=== PATIENT | male | born 1990 | race African-American/Black ===

== ENCOUNTER 2022-03-12 19:39 | Emergency (ER) | payer SELFPAY ==
--- NOTE | 2022-03-12 20:23 | ER ---
Nurse's Notes [facility] Name: Alonzo Holt III Age: 32 yrs Sex: Male : 1990 Arrival Date: 03/12/2022 Time: 19:41 Bed 10 Private MD: Diagnosis: Nausea Presentation: 03/12 19:53 Chief complaint: Patient states: COVID + today at [facility]. C/O N/V/D, fever, cough ld1 and SOB X 3 days. SpO2 98% upon arrival to ER. Coronavirus screen: cough unrelated to allergies, difficulty breathing, fatigue, nausea, vomiting. Client presents with at least one sign or symptom that may indicate coronavirus-19. Standard/surgical mask placed on the client. Ebola Screen: No symptoms or risks identified at this time. Initial Sepsis Screen: Does the patient meet any 2 criteria? No. Patient's initial sepsis screen is negative. Does the patient have a suspected source of infection? No. Patient's initial sepsis screen is negative. Risk Assessment: Do you want to hurt yourself or someone else? Patient reports no desire to harm self or others. Onset of symptoms was March 12, 2022 at 19:55. 19:53 Method Of Arrival: Ambulatory ld1 19:53 Acuity: STEFANI 4 ld1 Triage Assessment: 19:55 General: Appears in no apparent distress. uncomfortable, Behavior is calm, cooperative. ld1 Pain: Denies pain. EENT: No signs and/or symptoms were reported regarding the EENT system. Neuro: Level of Consciousness is awake, alert, obeys commands, Oriented to person, place, time, situation. Respiratory: Reports shortness of breath at rest Airway is patent Respiratory effort is even, unlabored, Onset: The symptoms/episode began/occurred gradually, the patient has mild shortness of breath. Historical: - Allergies: 19:55 No Known Allergies; ld1 - Home Meds: 19:55 None [Active]; ld1 - PMHx: 19:55 None; ld1 - PSHx: 19:55 None; ld1 - Immunization history:: Adult Immunizations not up to date, Client reports having NOT received the Covid vaccine. - Social history:: Smoking status: Patient reports the use of cigarette tobacco products, smokes one-half pack cigarettes per day, Patient uses alcohol, occasionally. Screenin:42 Abuse screen: Denies threats or abuse. Denies injuries from another. Nutritional lp1 screening: No deficits noted. Tuberculosis screening: No symptoms or risk factors identified. Fall Risk None identified. Assessment: 20:41 Reassessment: Patient reports concern that medication will not improve nausea; lp1 Discussed monitoring patient and attempting PO challenge to determine if nausea relieved. 21:11 Reassessment: Patient reports nausea improved, drinking water at this time. lp1 Vital Signs: 19:53 BP 102 / 64; Pulse 77; Resp 18; Temp 98.1(TE); Pulse Ox 98% on R/A; Weight 71.21 kg; ld1 Height 5 ft. 11 in. (180.34 cm); Pain 0/10; 19:53 Body Mass Index 21.90 (71.21 kg, 180.34 cm) ld1 ED Course: 19:41 Patient arrived in ED. jj6 19:55 Triage completed. ld1 19:55 Arm band placed on right wrist. ld1 20:05 Chente Ashley PA is PHCP. jr8 20:05 Dudley Stanford MD is Attending Physician. jr8 20:34 Divya Gresham, RN is Primary Nurse. lp1 21:00 Patient has correct armband on for positive identification. lp1 21:30 No provider procedures requiring assistance completed. Patient did not have IV access lp1 during this emergency room visit. Administered Medications: 20:41 Drug: Ondansetron 4 mg Route: PO; lp1 21:11 Follow up: Response: Marked relief of symptoms; Nausea is decreased lp1 Outcome: 20:23 Discharge ordered by . jr8 21:45 Discharged to home ambulatory. lp1 21:45 Condition: good 21:45 Discharge instructions given to patient, Instructed on discharge instructions, follow up and referral plans. medication usage, Demonstrated understanding of instructions, follow-up care, medications, Prescriptions given X 1. 21:46 Patient left the ED. lp1 Signatures: Divya Gresham, RN RN lp1 Chente Ashley PA PA jr8 Anjali Estevez RN RN ld1 Brinda Ghotra jj6
--- NOTE | 2022-03-12 20:23 | EDPHYS ---
Physician Documentation [facility] Name: Alonzo Holt III Age: 32 yrs Sex: Male : 1990 Arrival Date: 03/12/2022 Time: 19:41 Bed 10 Private MD: ED Physician Dudley Stanford HPI: 03/12 20:26 This 32 yrs old Black Male presents to ER via Ambulatory with complaints of Nausea, jr8 General Weakness. 20:26 The patient presents to the emergency department with nausea. Onset: The jr8 symptoms/episode began/occurred gradually, 2 day(s) ago. Possible causes: sick contacts, by family. The symptoms are aggravated by food , The symptoms are alleviated by nothing. Associated signs and symptoms: Pertinent positives: headache, chills. Severity of symptoms: At their worst the symptoms were moderate in the emergency department the symptoms are unchanged. The patient has not experienced similar symptoms in the past. The patient has been recently seen by a physician:. Tested at the [place] for covid today. Stated that his family all tested positive and now has symptoms for past two days. Historical: - Allergies: 19:55 No Known Allergies; ld1 - Home Meds: 19:55 None [Active]; ld1 - PMHx: 19:55 None; ld1 - PSHx: 19:55 None; ld1 - Immunization history:: Adult Immunizations not up to date, Client reports having NOT received the Covid vaccine. - Social history:: Smoking status: Patient reports the use of cigarette tobacco products, smokes one-half pack cigarettes per day, Patient uses alcohol, occasionally. ROS: 20:26 Eyes: Negative for injury, pain, redness, and discharge, ENT: Negative for injury, jr8 pain, and discharge, Neck: Negative for injury, pain, and swelling, Cardiovascular: Negative for chest pain, palpitations, and edema, Respiratory: Negative for shortness of breath, cough, wheezing, and pleuritic chest pain, Back: Negative for injury and pain, MS/Extremity: Negative for injury and deformity, Skin: Negative for injury, rash, and discoloration. 20:26 Constitutional: Positive for chills. 20:26 Abdomen/GI: Positive for nausea, Negative for abdominal pain, vomiting, diarrhea. 20:26 Neuro: Positive for headache. Exam: 20:26 Constitutional: This is a well developed, well nourished patient who is awake, alert, jr8 and in no acute distress. ENT: Nares patent. No nasal discharge, no septal abnormalities noted. Tympanic membranes are normal and external auditory canals are clear. Oropharynx with no redness, swelling, or masses, exudates, or evidence of obstruction, uvula midline. Mucous membranes moist. Neck: Trachea midline, no thyromegaly or masses palpated, and no cervical lymphadenopathy. Supple, full range of motion without nuchal rigidity, or vertebral point tenderness. No Meningismus. Cardiovascular: Regular rate and rhythm with a normal S1 and S2. No gallops, murmurs, or rubs. Normal PMI, no JVD. No pulse deficits. Respiratory: Lungs have equal breath sounds bilaterally, clear to auscultation and percussion. No rales, rhonchi or wheezes noted. No increased work of breathing, no retractions or nasal flaring. Abdomen/GI: Soft, non-tender, with normal bowel sounds. No distension or tympany. No guarding or rebound. No evidence of tenderness throughout. Back: No spinal tenderness. No costovertebral tenderness. Full range of motion. Skin: Warm, dry with normal turgor. Normal color with no rashes, no lesions, and no evidence of cellulitis. MS/ Extremity: Pulses equal, no cyanosis. Neurovascular intact. Full, normal range of motion. Neuro: Awake and alert, GCS 15, oriented to person, place, time, and situation. Motor strength 5/5 in all extremities. Sensory grossly intact. Vital Signs: 19:53 BP 102 / 64; Pulse 77; Resp 18; Temp 98.1(TE); Pulse Ox 98% on R/A; Weight 71.21 kg; ld1 Height 5 ft. 11 in. (180.34 cm); Pain 0/10; 19:53 Body Mass Index 21.90 (71.21 kg, 180.34 cm) ld1 MDM: 20:07 Patient medically screened. [email or web address] 20:19 Data reviewed: vital signs, nurses notes, and as a result, I will discharge patient. [facility] Data interpreted: Pulse oximetry: on room air is 98 %. Interpretation: normal. Counseling: I had a detailed discussion with the patient and/or guardian regarding: the historical points, exam findings, and any diagnostic results supporting the discharge/admit diagnosis, the need for outpatient follow up, a family practitioner, to return to the emergency department if symptoms worsen or persist or if there are any questions or concerns that arise at home. Administered Medications: 20:41 Drug: Ondansetron 4 mg Route: PO; lp1 21:11 Follow up: Response: Marked relief of symptoms; Nausea is decreased lp1 Disposition Summary: 03/12/22 20:23 Discharge Ordered Location: Home jr8 Problem: new jr8 Symptoms: have improved jr8 Condition: Stable jr8 Diagnosis - Nausea jr8 Followup: jr8 - With: Private Physician - When: 2 - 3 days - Reason: Recheck today's complaints, Re-evaluation by your physician Discharge Instructions: - Discharge Summary Sheet jr8 - Nausea, Adult jr8 Forms: - Medication Reconciliation Form jr8 - Thank You Letter jr8 - Antibiotic Education jr8 - Prescription Opioid Use jr8 Prescriptions: - ondansetron 4 mg Oral tablet,disintegrating - place 1 tablet by TRANSLINGUAL route every 8 hours As needed; 12 tablet; jr8 Refills: 0, Product Selection Permitted Signatures: Dudley Stanford MD MD [facility] Divya Gresham, RN RN lp1 Chente Ashley PA PA jr8 Anjali Estevez, RN RN ld1
[2022-03-12] MEDS ORDERED: ONDANSETRON 4 MG (ODT) TAB ONE (20:41)
[2022-03-13 00:48] VITALS: BP 102/64; TEMP 98.1; O2SAT 98
== END 2022-03-12 21:46 | disposition home or self-care (01) ==
LOC: ER 19:39
DX: R11.0 Nausea (principal); R53.1 Weakness; F17.210 Nicotine dependence, cigarettes, uncomplicated
CPT/HCPCS: 99283